=== PATIENT | female | born 1950 | race Caucasian/White ===

== ENCOUNTER 2018-07-07 00:02 | Emergency (ER) | payer OTHER, MEDICARE ==
--- NOTE | 2018-07-07 00:13 | PDOC ---
History of Present Illness - General Chief Complaint: Difficulty with Vision Stated Complaint: LEFT EYE BLURRY Time Seen by Provider: 07/07/18 00:08 - History of Present Illness Initial Comments: This 68-year-old woman with a history of hypothyroidism, anxiety/depression, migraines (no episodes last few years) presents with approximately one hour history of blurry vision in her left eye. Patient states that she was fatigued this evening and went to sleep early area when she awakened at 10:30 PM, she noted that she had decreased vision in the left eye ("like Vaseline spread on the eye"). Decreased vision was throughout the field without any area of clear vision seen in the left eye. She has unchanged vision in the left eye. 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 When the patient had migraines in the past, she had no aura or visual changes prior to the onset of her headache pain. Patient states that she has been taking gabapentin for pain, last dose approximately 4 hours prior to presentation. The patient denies any other neurologic symptoms including difficulty speaking/ word recall, facial droop, extremity weakness, balance or gait abnormalities Patient denies risk factors for vascular disease including hypertension/ hyperlipidemia PMH as above. 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 Past History - Past Medical History Allergies/Adverse Reactions: Allergies Allergy/AdvReac Type Severity Reaction Status Date / Time SSRI Allergy Uncoded 07/07/18 00:04 Home Medications: Ambulatory Orders Gabapentin 100 mg PO DAILY 07/07/18 Levothyroxine [Synthroid -] 50 mcg PO DAILY 07/07/18 Levothyroxine [Synthroid -] 75 mcg PO DAILY 07/07/18 Review of Systems - Review of Systems Able to Perform ROS?: Yes Comments:: 12 point review of systems is negative except for what is noted in the history of present illness *Physical Exam - Physical Exam Comments: GENERAL: Adult female, alert and oriented 3, in no acute distress HEAD: Normal with no signs of trauma. No temporal tenderness EYES: Left eye-3 mm pupil round and briskly reactive; anterior chamber/cornea/ conjunctival appear normal Funduscopic exam reveals no evidence of retinopathy ENT: Ears normal, nares patent, oropharynx clear without exudates. Moist mucous membranes. NECK: Normal range of motion, supple without lymphadenopathy, JVD, or masses. LUNGS: Breath sounds equal, clear to auscultation bilaterally. No wheezes, and no crackles. HEART:Regular rate and rhythm, normal S1 and S2 without murmur, rub or gallop. NEUROLOGICAL: Cranial nerves II through XII grossly intact. Normal speech. Motor 4/5 on right[patient states this is chronic after neurosurgical procedure) ], 5/5 on the left; normal gait Medical Decision Making - Medical Decision Making Differential diagnosis of amaurosis fugax discussed with the patient including thromboembolic etiology, vasospasm, ocular migraine, temporal arteritis. Patient states that she is having improvement in the vision as she has been awaiting evaluation. At this point, since symptoms and is improving, she greatly prefers not to pursue any detailed diagnostic evaluation at this time. Patient has recently relocated from [place]. Although she has not seen any medical practitioner, she has medical follow-up scheduled in approximately 3 weeks. It was explained to the patient that she needs diagnostic workup much sooner than this. She agrees to follow-up with either her general practitioner (call in the office to move up her already scheduled appointment) or someone in [facility]. Efforts were made to contact either or to confirm that the patient could be seen in the next 48 hours by a neurologist. Despite numerous attempts, no callback was received. The patient was feeling much improved, she preferred to be discharged now with efforts to be made tomorrow to either 1) move up her own general medical evaluation or 2) contact neurologist in our system. Referral information for Dr. Busch (who is on-call for neurology) given to the patient. Also, full ophthalmologic evaluation is warranted and patient does not service coordinator elderly facility here: Dr. Jackson/Audrey referral information given to the patient. 07/07/18 07:[address] Busch and case described to him. Patient can be seen in the office within the next few days. Patient contacted and information relayed to her. She states that she will call 's office at 9 AM to arrange follow-up *DC/Admit/Observation/Transfer Diagnosis at time of Disposition: Amaurosis fugax of left eye - Discharge Dispostion Disposition: HOME Condition at time of disposition: Improved - Referrals Referrals: Don Busch MD [Staff Physician] - Call tomorrow Devonte Jackson MD [Staff Physician] - - Patient Instructions Printed Discharge Instructions: DI for Visual Field Disturbances Additional Instructions: Follow-up with either your general medical doctor or (neurologist) within the next 1-2 days Plan followup with service coordinator elderly facility(Dr Jackson/[facility]rey group) within 5-7 days Return to ER if you have worsening of your vision or experience new symptoms - Post Discharge Activity
[2018-07-07 00:14] VITALS: BP 168/84; PULSE 82; TEMP 97.8; BMI 23.8
== END 2018-07-07 02:09 | disposition home or self-care (01) ==
LOC: FER 00:02
DX: G45.3 Amaurosis fugax (principal); E03.9 Hypothyroidism, unspecified; F41.8 Other specified anxiety disorders
CPT/HCPCS: 99281-25